=== PATIENT | female | born 1965 | race Caucasian/White ===

== ENCOUNTER 2018-06-07 13:03 | Outpatient (CLI) | payer OTHER | END 2018-06-07 13:32 | disposition home or self-care (01) | LOC: RAD 13:03 | DX: M15.8 Other polyosteoarthritis (principal) ==

== ENCOUNTER 2018-06-07 13:31 | Outpatient (CLI) | payer OTHER | END 2018-06-07 13:34 | disposition home or self-care (01) | LOC: SONOGRAMA 13:31 | DX: M15.8 Other polyosteoarthritis (principal) ==

== ENCOUNTER 2018-07-16 09:10 | Outpatient (CLI) | payer OTHER | END 2018-07-16 09:59 | disposition home or self-care (01) | LOC: NUCLEAR 09:10 | DX: L40.59 Other psoriatic arthropathy (principal); M46.1 Sacroiliitis, not elsewhere classified | CPT/HCPCS: 78306; A9503 ==

== ENCOUNTER 2018-09-17 07:29 | Outpatient (CLI) | payer OTHER | END 2018-09-17 07:55 | disposition home or self-care (01) | LOC: TOM 07:29 | DX: K85.00 Idiopathic acute pancreatitis without necrosis or infection (principal) ==

== ENCOUNTER 2019-01-11 10:36 | Outpatient (CLI) | payer OTHER | END 2019-01-11 10:43 | disposition home or self-care (01) | LOC: RAD 501 10:36 | DX: M79.2 Neuralgia and neuritis, unspecified (principal); M79.672 Pain in left foot ==

== ENCOUNTER 2020-05-12 08:20 | Outpatient (CLI) | payer OTHER | END 2020-05-12 08:31 | disposition home or self-care (01) | LOC: RAD 08:20 | DX: M17.12 Unilateral primary osteoarthritis, left knee (principal); M79.642 Pain in left hand; M79.641 Pain in right hand ==

== ENCOUNTER 2020-08-27 09:30 | Outpatient (CLI) | payer OTHER | END 2020-08-27 09:42 | disposition home or self-care (01) | LOC: RAD 09:30 | DX: M25.511 Pain in right shoulder (principal) ==

== ENCOUNTER → 2020-11-21 | Outpatient (CLI) | payer OTHER | END | disposition home or self-care (01) | LOC: RAD 11:12 | PROVIDERS: ATTEND Internal Medicine Rheumatology | DX: S80.02XA Contusion of left knee, initial encounter (principal); S80.01XA Contusion of right knee, initial encounter; M15.8 Other polyosteoarthritis; M25.511 Pain in right shoulder ==